=== PATIENT | female | born 1980 | race Caucasian/White ===

== ENCOUNTER 2020-05-09 18:15 | Emergency (ER) | payer OTHER ==
[~2020-05-09] VITALS: Ht 160 cm; Wt 74.8 kg
[~2020-05-09 18:15] MED LIST: APAP500 PO; CLOBETASOL PROP60 G1 TP; DERMOPLAST SPRA56 ML; IBUPROFEN 600600 M1 PO; LANOLIN56 GM; TUCKS MEDICATE1 EAC1 TOP
[2020-05-09] MEDS ORDERED: CIPROFLOXIN HC2.5 M1 OPHTHALMIC (19:20)
[2020-05-09 19:26] VITALS: BP 128/83
== END 2020-05-09 19:27 | disposition home or self-care (01) ==
LOC: M.ERS 18:15
DX: H18.821 Corneal disorder due to contact lens, right eye (principal); F17.210 Nicotine dependence, cigarettes, uncomplicated; Z98.890 Other specified postprocedural states; Z98.51 Tubal ligation status

== ENCOUNTER 2020-05-20 00:52 | Emergency (ER) | payer OTHER ==
[~2020-05-20] VITALS: Ht 160 cm; Wt 68.0 kg
[~2020-05-20 00:52] MED LIST changes: +CIPROFLOXIN HC2.5 M1 OPHTHALMIC
[2020-05-20 02:45] VITALS: BP 132/78
[2020-05-21] MEDS ORDERED: OTOVEL 0.3%-0.1 EACH LT. EYE (13:56)
[2020-05-21] MEDS ORDERED: OCUFLOX5 ML OPHTHALMIC (13:56)
== END 2020-05-20 02:45 | disposition short-term general hospital (02) ==
LOC: M.ERS 00:52
DX: H18.822 Corneal disorder due to contact lens, left eye (principal); F17.210 Nicotine dependence, cigarettes, uncomplicated; Z98.51 Tubal ligation status; Z98.890 Other specified postprocedural states

== ENCOUNTER 2020-05-21 13:39 | Emergency (ER) | payer OTHER ==
[~2020-05-21] VITALS: Ht 160 cm; Wt 68.0 kg
[2020-05-21] MEDS ORDERED: OTOVEL 0.3%-0.1 EACH LT. EYE (13:56)
[2020-05-21] MEDS ORDERED: OCUFLOX5 ML OPHTHALMIC (13:56)
[2020-05-21 15:03] VITALS: BP 131/88
== END 2020-05-21 15:03 | disposition home or self-care (01) ==
LOC: M.ERS 13:39
DX: H18.822 Corneal disorder due to contact lens, left eye (principal); F17.210 Nicotine dependence, cigarettes, uncomplicated; Z98.890 Other specified postprocedural states; Z98.51 Tubal ligation status